=== PATIENT | male | born 1965 | race African-American/Black ===

== ENCOUNTER → 2019-01-02 | Outpatient (CLI) | payer OTHER ==
--- NOTE | 2019-01-02 15:38 | RADIOLOGY REPORT (SQ) ---
EXAM DESCRIPTION: SHOULDER RIGHT 2 OR MORE VIEWS COMPLETED DATE/TIME: 01/02/2019 1:13 pm REASON FOR STUDY: PAIN IN RIGHT SHOULDER M25.511 PAIN IN RIGHT SHOULDER COMPARISON: None. NUMBER OF VIEWS: Three views. TECHNIQUE: Internal rotation, external rotation, and Y view images acquired of the right shoulder. LIMITATIONS: None. FINDINGS: MINERALIZATION: Normal. BONES: No acute fracture. No worrisome bone lesions. No significant osteophytes. GLENOHUMERAL JOINT: No significant findings. ACROMIOCLAVICULAR JOINT: No large osteophytes. SOFT TISSUES: No calcifications. VISUALIZED RIBS, SPINE, AND LUNG: No other significant finding. OTHER: No other significant finding. IMPRESSION: NEGATIVE STUDY OF THE RIGHT SHOULDER. NO EXPLANATION FOR PAIN. TECHNICAL DOCUMENTATION: JOB ID: [id number] [employer]- All Rights Reserved Reading location - IP/workstation name: [email or web address]
== END ==
LOC: OD 13:01
PROVIDERS: ATTEND Family Medicine
DX: M25.511 Pain in right shoulder (principal)

== ENCOUNTER 2020-01-11 12:30 | Emergency (ER) | payer OTHER ==
[2020-01-11] MEDS ORDERED: MORPHINE SULFATE 10 MG/ML INJ IV ONE ×2 (14:00→18:30)
[2020-01-11] MEDS ORDERED: ONDANSETRON HCL INJ/PF 4 MG/2 ML SDV IV ONE (14:01)
--- NOTE | 2020-01-11 14:02 | ER Document Report ---
ED Medical Screen (RME) - General Chief Complaint: Abdominal Pain Stated Complaint: ABDOMINAL PAIN Time Seen by Provider: 01/11/20 13:52 Primary Care Provider: TE MARTIN MD [Primary Care Provider] - Follow up as needed Mode of Arrival: Ambulatory Information source: Patient Notes: Patient is a 54-year-old male comes to emergency room with sudden onset of abdominal pain and discomfort. Patient states that he was at a restaurant eating sushi and proximally 20 minutes after finishing that he had sudden severe onset of left sided abdominal pain. Patient states he also had difficult time swallowing and taken of breath. He cannot find a position of comfort. Patient is very nauseated. Patient only states he has a past medical history pertinent for hypertension. He also states that he drinks at least 3 beers a day. Physical exam: Patient is a well-nourished well-developed 54-year-old male who is in mild to moderate discomfort and obvious pain on examination. Cardiac: Regular rate and rhythm with no murmurs. Lungs: Bilateral breath sounds decreased throughout no rhonchi rales or wheeze auscultated. Abdomen patient is uncomfortable and will not sit down or sit still. Physical exam of his abdomen while him standing shows that he has severe abdominal pain and discomfort to light palpation across the upper quadrants of his abdomen. But it does also descends down into bilateral lower quadrants. Patient is moderately distended as well percussion causes severe pain and discomfort. I have greeted and performed a rapid initial assessment of this patient. A comprehensive ED assessment and evaluation of the patient, analysis of test results and completion of the medical decision making process will be conducted by additional ED providers. Dictation of this chart was performed using voice recognition software; therefore, there may be some unintended grammatical errors. TRAVEL OUTSIDE OF THE [place] IN LAST 30 DAYS: No Past Medical History - Social History Chew tobacco use (# tins/day): No Frequency of alcohol use: 2/3 beers a day Drug Abuse: None Physical Exam - Vital signs Vitals: Temp 98.4 F 01/11/20 12:30 Course - Vital Signs Vital signs: Temp Pulse Resp BP Pulse Ox 98.4 F 89 16 173/104 H 100 01/11/20 12:34 01/11/20 12:34 01/11/20 12:34 01/11/20 12:34 01/11/20 12:34 Doctor's Discharge - Discharge Referrals: TE MARTIN MD [Primary Care Provider] - Follow up as needed
--- NOTE | 2020-01-11 15:01 | RADIOLOGY REPORT (SQ) ---
EXAM DESCRIPTION: CT ABD/PELVIS WITH IV ONLY IMAGES COMPLETED DATE/TIME: 01/11/2020 2:22 pm REASON FOR STUDY: Possible perferation Abd COMPARISON: 04/12/2014 TECHNIQUE: CT scan of the abdomen and pelvis performed using helical scanning technique with dynamic intravenous contrast injection. No oral contrast. Images reviewed with lung, soft tissue, and bone windows. Reconstructed coronal and sagittal MPR images reviewed. Delayed images for evaluation of the urinary system also acquired. All images stored on PACS. All CT scanners at this facility use dose modulation, iterative reconstruction, and/or weight based d osing when appropriate to reduce radiation dose to as low as reasonably achievable (ALARA). [facility]: Dose Right [facility]: CareDose [facility]: Dose Right [facility]: Teradose 4D [facility]: Cuponzote CONTRAST TYPE AND DOSE: contrast/concentration: Isovue 350.00 mmol/ml; Total Contrast Delivered: 90. 3 ml; Total Saline Delivered: 72.9 ml RENAL FUNCTION: Due to the severity of the patient's condition, the evaluating physician elected to proceed with contrast-enhanced imaging prior to obtaining renal function labs. RADIATION DOSE: CT Rad equipment meets quality standard of care and radiation dose reduction techniq ues were employed. CTDIvol: 5.2 - 6.8 mGy. DLP: 615 mGy-cm.. LIMITATIONS: None. FINDINGS: LOWER CHEST: No significant findings. No nodules or infiltrates. LIVER: Normal size. No masses. No dilated ducts. SPLEEN: Normal size. No focal lesions. PANCREAS: No masses. No significant calcifications. No adjacent inflammation or peripancreatic fluid collections. Pancreatic duct not dilated. GALLBLADDER: No identified stones by CT criteria. No inflammatory changes to suggest cholecystitis. ADRENAL GLANDS: No significant masses or asymmetry. RIGHT KIDNEY AND URETER: No solid masses. No significant calcifications. No hydronephrosis or hyd roureter. LEFT KIDNEY AND URETER: No solid masses. No significant calcifications. No hydronephrosis or hydr oureter. AORTA AND VESSELS: No aneurysm. No dissection. Renal arteries, SMA, celiac without stenosis. The cari ac arteries appear to be ectatic. RETROPERITONEUM: No retroperitoneal adenopathy, hemorrhage or masses. BOWEL AND PERITONEAL CAVITY: No masses or inflammatory changes. No free fluid or peritoneal masses. APPENDIX: Normal. PELVIS: No mass. No free fluid. Normal bladder. ABDOMINAL WALL: No masses. No hernias. BONES: Degenerative changes are seen of the hips and spine. OTHER: No other significant finding. IMPRESSION: No evidence of bowel perforation. No evidence of acute intra-abdominal infectious/infla mmatory process. TECHNICAL DOCUMENTATION: JOB ID: [id number] Quality ID # [id number]: Final reports with documentation of one or more dose reduction techniques (e.g., Au tomated exposure control, adjustment of the mA and/or kV according to patient size, use of iterative reconstruction technique) 2010 [employer]- All Rights Reserved Reading location - IP/workstation name: [email or web address]
[2020-01-11 15:07] LABS: ABSOLUTE EOSINOPHILS # (AUTO) 0.1 10^3/uL (0.0-0.6); ABSOLUTE MONOCYTES (AUTO) 0.3 10^3/uL (0.1-1.4); ABSOLUTE NEUT (AUTO) 1.8 10^3/uL (1.7-8.2); BASOPHILS % (AUTO) 0.5 % (0-2); EOSINOPHILS % (AUTO) 1.6 % (0-6); HEMATOCRIT 41.8 % (37.9-51.0); HEMOGLOBIN 14.2 g/dL (13.5-17.0); LYMPHOCYTES % (AUTO) 29.8 % (13-45); MEAN CORPUSCULAR HEMOGLOBIN 34.2 pg (27.0-33.4); MEAN CORPUSCULAR HGB CONC 33.9 g/dL (32.0-36.0); MEAN CORPUSCULAR VOLUME 101 fl (80-97); MONOCYTES % (AUTO) 10.4 % (3-13); PLATELET COUNT 190 10^3/uL (150-450); RED BLOOD COUNT 4.14 10^6/uL (4.35-5.55); RED CELL DISTRIBUTION WIDTH 13.4 % (11.5-14.0); SEGMENTED NEUTROPHILS % (AUTO) 57.7 % (42-78); TOTAL CELLS COUNTED % (AUTO) 100 %; WHITE BLOOD COUNT 3.2 10^3/uL (4.0-10.5)
[2020-01-11 15:31] LABS: ALKALINE PHOSPHATASE 53 U/L (38-126); ANION GAP 8 (5-19); ASPARTATE AMINO TRANSFERASE 35 U/L (17-59); BILIRUBIN,TOTAL 0.4 mg/dL (0.2-1.3); BLOOD UREA NITROGEN 12 mg/dL (7-20); CALCIUM 9.5 mg/dL (8.4-10.2); CARBON DIOXIDE 32 mmol/L (22-30); CHLORIDE 101 mmol/L (98-107); GLUCOSE 108 mg/dL (75-110); POTASSIUM 4.4 mmol/L (3.6-5.0); TOTAL PROTEIN 8.3 g/dL (6.3-8.2)
[2020-01-11] MEDS ORDERED: ONDANSETRON HCL INJ/PF 4 MG/2 ML SDV ONE (17:46)
--- NOTE | 2020-01-11 18:22 | ER Document Report ---
ED GI/ - General Mode of Arrival: Ambulatory Information source: Patient TRAVEL OUTSIDE OF THE [place] IN LAST 30 DAYS: No <ESTEBAN WILSON - Last Filed: 01/11/20 21:44> <BRENNEN GILLIS - Last Filed: 01/11/20 22:27> - General Chief Complaint: Abdominal Pain Stated Complaint: ABDOMINAL PAIN Time Seen by Provider: 01/11/20 13:52 Primary Care Provider: TE SORTO MD [Primary Care Provider] - Follow up as needed Notes: 54-year-old male patient presents emergency department chief complaint of sudden onset sharp, stabbing, crushing pain to his abdomen. He states it is in the upper and lower abdomen on the left side. He states he had a normal day, felt well, came home from work, ate some sushi and drink some lemonade without difficulty. Approximately 20 minutes later he had the sudden onset pain. He states the pain was so severe he could not speak. He denied any chest pain or shortness of breath at this time. He has never had pain like this before. He states the pain did subside some but keeps returning in waves. (ESTEBAN WILSON) Past Medical History - General Information source: Patient - Social History Smoking Status: Never Smoker Chew tobacco use (# tins/day): No Frequency of alcohol use: 2/3 beers a day, 2-3 shots/day Drug Abuse: None Family History: Other - Not obtained secondary to patient's significant pain during assessment Patient has homicidal ideation: No - Past Medical History Cardiac Medical History: Reports: Hx DVT - R upper extremity, Hx Hypertension Past Surgical History: Reports: Hx Orthopedic Surgery - R Rib resection - Immunizations Immunizations up to date: Yes <ESTEBAN WILSON - Last Filed: 01/11/20 21:44> Review of Systems - Review of Systems Constitutional: No symptoms reported EENT: No symptoms reported Cardiovascular: No symptoms reported Respiratory: No symptoms reported Gastrointestinal: Abdominal pain - LUQ/LLQ sudden onset, Nausea Genitourinary: No symptoms reported Male Genitourinary: No symptoms reported Musculoskeletal: No symptoms reported Skin: No symptoms reported Hematologic/Lymphatic: No symptoms reported Neurological/Psychological: No symptoms reported <ESTEBAN WILSON - Last Filed: 01/11/20 21:44> Physical Exam <ESTEBAN WILSON - Last Filed: 01/11/20 21:44> - Vital signs Vitals: Temp 98.4 F 01/11/20 12:30 - Notes Notes: PHYSICAL EXAMINATION: GENERAL: Well-appearing, well-nourished and in moderate distress. HEAD: Atraumatic, normocephalic. EYES: Pupils equal round and reactive to light, extraocular movements intact, sclera anicteric, conjunctiva are normal. ENT: Nares patent, oropharynx clear without exudates. Moist mucous membranes. NECK: Normal range of motion, supple without lymphadenopathy LUNGS: Breath sounds clear to auscultation bilaterally and equal. No wheezes rales or rhonchi. HEART: Regular rate and rhythm without murmurs ABDOMEN: Nondistended abdomen. Significant tenderness with palpation to the left upper and lower quadrants near the midline. Guarding present. Musculoskeletal: Normal range of motion, no pitting or edema. No cyanosis. NEUROLOGICAL: Cranial nerves grossly intact. Normal speech, normal gait. Normal sensory, motor exams PSYCH: Normal mood, normal affect. SKIN: Warm, Dry, normal turgor, no rashes or lesions noted. (ESTEBAN WILSON) Course - Laboratory Result Diagrams: 01/11/20 14:30 01/11/20 14:30 - Diagnostic Test Radiology reviewed: Reports reviewed - EKG Interpretation by Me EKG shows normal: Sinus rhythm Rate: Normal - EKG shows a sinus rhythm, rate of 65, normal axis, normal intervals, no ST segment elevations or depressions to suggest ischemia. QTc 421. <ESTEBAN WILSON - Last Filed: 01/11/20 21:44> - Laboratory Result Diagrams: 01/11/20 14:30 01/11/20 14:30 <BRENNEN GILLIS - Last Filed: 01/11/20 22:27> - Re-evaluation Re-evalutation: Laboratory investigations today were unremarkable. Urine is still pending. CT abdomen pelvis with IV contrast shows no acute findings. Patient has pain out of proportion to the left upper and lower quadrants. I am concerned that there is something acute going on with this patient. Dr. Gillis in to evaluate. 01/11/20 18:[address] Meza. Awaiting call back. 01/11/20 18:45 Dr. Meza came to the bedside. He will consult on the patient however he does not believe there is any acute surgical abdomen. Upon further review of the records there was no lipase ordered by triage. Orders entered, called lab, they will add on to original blood. 01/11/20 20:17 Patient's lipase is normal. Patient reports pain has now resolved and has not come back in at least 45 minutes to an hour. Will give patient a dose of IM Bentyl, IV Pepcid and will do a p.o. trial. If patient feels well and passes a p.o. trial will discharge home. 01/11/20 21:30 Patient feels much improved. Lipase remains negative. Patient reports ready to go home. He did pass a p.o. trial. He will be discharged home with a prescri ption for Bentyl. He will follow-up with Dr. Sorto, will call him tomorrow morning to schedule an appointment. Patient understands ED return precautions. (ESTEBAN WILSON) 01/11/20 22:26 Patient seen in conjunction with the nurse practitioner, please see her note to correlate with mine. In short this is a 54-year-old gentleman with a history of hypertension who presented to the ER with sudden onset abdominal pain. Physical exam revealed voluntary guarding and diffusely tender abdomen. Recommended surgical consult. Patient's labs failed reveal any significant abnormality. Patient CT of the abdomen pelvis with IV contrast failed to reveal any signs of dissection. Patient pain-free upon reevaluation. He is to follow-up closely with his primary care provider tomorrow morning, return to the ED with worsening. (BRENNEN GILLIS) - Vital Signs Vital signs: Temp Pulse Resp BP Pulse Ox 98.6 F 51 L 12 139/63 H 99 01/11/20 21:52 01/11/20 21:52 01/11/20 21:52 01/11/20 21:52 01/11/20 21:52 - Laboratory Laboratory results interpreted by wi: 01/11/20 01/11/20 14:30 14:30 WBC 3.2 L RBC 4.14 L MCV 101 H MCH 34.2 H Carbon Dioxide 32 H Total Protein 8.3 H Discharge <ESTEBAN WILSON - Last Filed: 01/11/20 21:44> <FRIES,LUNDYN M - Last Filed: 01/11/20 22:27> - Discharge Clinical Impression: Abdominal pain Qualifiers: Abdominal location: left upper quadrant Qualified Code(s): R10.12 - Left upper quadrant pain Condition: Stable Disposition: HOME, SELF-CARE Additional Instructions: Please take medication as prescribed. Eat a bland diet. Call your primary care provider Dr. Sorto tomorrow to schedule a follow-up appointment. Return to the emergency department with any worsening symptoms. Prescriptions: Dicyclomine HCl [Bentyl 20 mg Tablet] 20 mg PO QID #40 tablet Forms: Return to Work Referrals: TE SORTO MD [Primary Care Provider] - Follow up as needed
[2020-01-11 18:30] LABS: APPEARANCE,URINE CLEAR; BILIRUBIN,URINE NEGATIVE (NEGATIVE); COLOR,URINE YELLOW; GLUCOSE, URINE NEGATIVE (NEGATIVE); KETONES,URINE NEGATIVE (NEGATIVE); LEUKOCYTE ESTERASE,URINE NEGATIVE (NEGATIVE); NITRITE,URINE NEGATIVE (NEGATIVE); PROTEIN,URINE NEGATIVE (NEGATIVE); UROBILINOGEN,URINE NEGATIVE mg/dL (<2.0)
--- NOTE | 2020-01-11 18:38 | EKG REPORT ---
SEVERITY:- NORMAL ECG - SINUS RHYTHM : Confirmed by: Yu Vazquez 11-Jan-2020 18:37:48
[2020-01-11] MEDS ORDERED: FAMOTIDINE INJ/PF 20 MG/2 ML SDV IV ONE (20:08)
[2020-01-11] MEDS ORDERED: DICYCLOMINE HCL INJ 20 MG/2 ML AMPULE IM ONE (20:09)
[2020-01-11] MEDS ORDERED: DICYCLOMINE HCL 20 MG TABLET PO ONE (21:24)
--- NOTE | 2020-01-11 21:27 | PDOC CONSULTATION ---
Consultation Consult Date: 01/11/20 Provider Consulted: WALLY DIEZ Consult reason:: Abdominal pains History of Present Illness Admission Date/PCP: TE MARTIN MD History of Present Illness: AKILA MORA is a 54 year old male who has chronic alcohol abuse came home from work at 11:45 AM, had a regular bowel movement then suddenly complained of severe left upper quadrant abdominal pains. He had a CT scan of the abdomen which was unremarkable. His white count is normal and the lipase sent out on blood work just came back normal. Meantime patient's symptoms appears to be subsiding. Patient denies any fever chills diarrhea no constipation. No nausea or vomiting. Past Medical History Cardiac Medical History: Reports: DVT - R upper extremity, Hypertension Past Surgical History Past Surgical History: Reports: Orthopedic Surgery - R Rib resection Social History Smoking Status: Never Smoker Electronic Cigarette use?: No Frequency of Alcohol Use: Heavy Family History Family History: Other - Not obtained secondary to patient's significant pain during assessment Parental Family History Reviewed: Yes - Father diabetic Children Family History Reviewed: No Sibling(s) Family History Reviewed.: No Review of Systems Constitutional: PRESENT: as per HPI Gastrointestinal: PRESENT: abdominal pain Physical Exam Vital Signs: Temp Pulse Resp BP Pulse Ox 98.4 F 89 16 173/104 H 100 01/11/20 12:34 01/11/20 12:34 01/11/20 12:34 01/11/20 12:34 01/11/20 12:34 Intake & Output 01/10/20 01/11/20 01/12/20 06:59 06:59 06:59 Weight 77.4 kg General appearance: PRESENT: mild distress Head exam: PRESENT: atraumatic Eye exam: PRESENT: conjunctiva pink Neck exam: PRESENT: full ROM Respiratory exam: PRESENT: clear to auscultation rema Cardiovascular exam: PRESENT: RRR Pulses: PRESENT: normal radial pulses Vascular exam: PRESENT: normal capillary refill GI/Abdominal exam: PRESENT: soft, tenderness - At the left upper quadrant Rectal exam: PRESENT: deferred Musculoskeletal exam: PRESENT: full ROM Neurological exam: PRESENT: alert, oriented to person, oriented to place, oriented to time, oriented to situation Psychiatric exam: PRESENT: appropriate affect Skin exam: PRESENT: normal color, warm Results Laboratory Results: 01/11/20 14:30 01/11/20 14:30 01/11/20 01/11/20 01/11/20 14:30 14:30 14:30 WBC 3.2 L RBC 4.14 L Hgb 14.2 Hct 41.8 MCV 101 H MCH 34.2 H MCHC 33.9 RDW 13.4 Plt Count 190 Seg Neutrophils % 57.7 Sodium 140.6 Potassium 4.4 Chloride 101 Carbon Dioxide 32 H Anion Gap 8 BUN 12 Creatinine 0.88 Est GFR ( Amer) > 60 Glucose 108 Calcium 9.5 Total Bilirubin 0.4 AST 35 Alkaline Phosphatase 53 Total Protein 8.3 H Albumin 5.0 Lipase 106.0 Urine Color Urine Appearance Urine pH Ur Specific [place] Urine Protein Urine Glucose (UA) Urine Ketones Urine Blood Urine Nitrite Ur Leukocyte Esterase Urine WBC (Auto) Urine RBC (Auto) 01/11/20 01/11/20 17:59 20:33 WBC RBC Hgb Hct MCV MCH MCHC RDW Plt Count Seg Neutrophils % Sodium Potassium Chloride Carbon Dioxide Anion Gap BUN Creatinine Est GFR ( Amer) Glucose Calcium Total Bilirubin AST Alkaline Phosphatase Total Protein Albumin Lipase 97.0 Urine Color YELLOW Urine Appearance CLEAR Urine pH 6.0 Ur Specific [place] 1.060 Urine Protein NEGATIVE Urine Glucose (UA) NEGATIVE Urine Ketones NEGATIVE Urine Blood NEGATIVE Urine Nitrite NEGATIVE Ur Leukocyte Esterase NEGATIVE Urine WBC (Auto) 0 Urine RBC (Auto) 1 01/11/20 14:30 Troponin I < 0.012 Impressions: Abdomen/Pelvis CT 01/11/20 13:59 IMPRESSION: No evidence of bowel perforation. No evidence of acute intra- abdominal infectious/inflammatory process. Assessment & Plan - Diagnosis (1) Abdominal pain Is this a current diagnosis for this admission?: Yes - Time Time Spent: 30 to 50 Minutes - Plan Summary Plan Summary: 54-year-old male with chronic alcohol abuse but functional, came home this morning from work at 11:45 AM, showered then suddenly complained of left upper quadrant pains. Went to ED where a CT scan of the abdomen was done which was unremarkable. All his lab works are normal. Pains appears to be gradually subsiding. When initially seen in the ED there is mild tenderness in the left upper quadrant. His lipase was added and came back normal. Impression: Abdominal pains, etiology not clear. Possible muscle strain versus very early acute pancreatitis. Since he is getting better I agree with you to just send him home on Bentyl and to see Dr. Martin his primary physician tomorrow. He may need to have outpatient colonoscopy if he has not had one recently. Would ask him to come back to ED if he has recurrence of severe abdominal pains, nausea, vomiting fever or chills.
[2020-01-11 21:53] VITALS: BP 139/63
== END 2020-01-11 21:51 | disposition home or self-care (01) ==
LOC: ER 12:30
DX: R10.12 Left upper quadrant pain (principal); R10.32 Left lower quadrant pain; R11.0 Nausea; I10 Essential (primary) hypertension
CPT/HCPCS: 93005; 99285; 96372; 96374; 96375; 36415; 83690; 85025; 80053; 81001; 84484; 74177; 93010; J3490; J0500; J2270; J2405; S0028

== ENCOUNTER → 2020-01-19 | Outpatient (CLI) | payer OTHER ==
[2020-01-19 15:27] LABS: ALKALINE PHOSPHATASE 53 U/L (38-126); ANION GAP 9 (5-19); ASPARTATE AMINO TRANSFERASE 35 U/L (17-59); BILIRUBIN,DIRECT 0.3 mg/dL (0.0-0.4); BILIRUBIN,TOTAL 0.7 mg/dL (0.2-1.3); BLOOD UREA NITROGEN 16 mg/dL (7-20); CARBON DIOXIDE 31 mmol/L (22-30); CHLORIDE 99 mmol/L (98-107); GLUCOSE 98 mg/dL (75-110); POTASSIUM 4.6 mmol/L (3.6-5.0); TOTAL PROTEIN 8.3 g/dL (6.3-8.2)
[2020-01-19 15:28] LABS: ABSOLUTE EOSINOPHILS # (AUTO) 0.1 10^3/uL (0.0-0.6); ABSOLUTE LYMPHOCYTES (AUTO) 1.1 10^3/uL (0.5-4.7); ABSOLUTE MONOCYTES (AUTO) 0.3 10^3/uL (0.1-1.4); ABSOLUTE NEUT (AUTO) 1.7 10^3/uL (1.7-8.2); BASOPHILS % (AUTO) 0.5 % (0-2); EOSINOPHILS % (AUTO) 2.1 % (0-6); HEMATOCRIT 42.6 % (37.9-51.0); HEMOGLOBIN 14.7 g/dL (13.5-17.0); LYMPHOCYTES % (AUTO) 35.1 % (13-45); MEAN CORPUSCULAR HEMOGLOBIN 34.2 pg (27.0-33.4); MEAN CORPUSCULAR HGB CONC 34.4 g/dL (32.0-36.0); MEAN CORPUSCULAR VOLUME 99 fl (80-97); MONOCYTES % (AUTO) 10.7 % (3-13); PLATELET COUNT 200 10^3/uL (150-450); RED BLOOD COUNT 4.29 10^6/uL (4.35-5.55); RED CELL DISTRIBUTION WIDTH 12.8 % (11.5-14.0); SEGMENTED NEUTROPHILS % (AUTO) 51.6 % (42-78); TOTAL CELLS COUNTED % (AUTO) 100 %; WHITE BLOOD COUNT 3.2 10^3/uL (4.0-10.5)
== END ==
LOC: OD 14:24
PROVIDERS: ATTEND Family Medicine
DX: R10.32 Left lower quadrant pain (principal)
CPT/HCPCS: 36415; 80053; 83690; 85025